=== PATIENT | female | born 1990 | race Hispanic/Latino ===

== ENCOUNTER 2018-06-12 01:40 | Emergency (ER) | payer BC ==
[2018-06-12 02:01] LABS: APPEARANCE,URINE Clear (CLEAR); BILIRUBIN,URINE Negative (NEGATIVE); COLOR,URINE Yellow (YELLOW); GLUCOSE, URINE (UA) Negative (NEGATIVE); KETONES,URINE Negative (NEGATIVE); LEUKOCYTE ESTERASE ,URINE Negative (NEGATIVE); NITRATE,URINE Negative (NEGATIVE); OCCULT BLOOD,URINE Negative (NEGATIVE); PH,URINE 7.5 (5.0-8.0); PROTEIN,URINE Negative (NEGATIVE)
[2018-06-12 02:04] LABS: HCG,QUAL RESULT NEGATIVE (NEGATIVE)
[2018-06-12] MEDS ORDERED: ONDANSETRON HCL 4 MG/2 ML VIAL ONE (02:13)
[2018-06-12] MEDS ORDERED: KETOROLAC TROMETHAMINE 30MG/ML ONE (02:14)
[2018-06-12 02:19] LABS: BASOPHILS % (AUTO) 0.2 % (0.0-5.0); EOSINOPHILS % (AUTO) 4.6 % (0.0-8.0); HEMATOCRIT 37.1 % (36-48); LYMPHOCYTES % (AUTO) 27.5 % (21.0-51.0); MEAN CORPUSCULAR HEMOGLOBIN 30.9 pg (27.0-33.0); MEAN CORPUSCULAR HGB CONC 33.4 g/dL (32.0-36.0); MEAN CORPUSCULAR VOLUME 92.6 fL (79-99); MONOCYTES % (AUTO) 11.7 % (3.0-13.0); PLATELET COUNT (AUTO) 287 K/uL (130-400); RED CELL DISTRIBUTION WIDTH 13.4 % (11.0-15.5); WHITE BLOOD COUNT (AUTO) 8.2 K/uL (4.8-10.8)
[2018-06-12 02:29] LABS: CREATININE 0.8 mg/dL (0.5-1.5); POTASSIUM 4.1 mmol/L (3.5-5.1)
[2018-06-12 02:35] LABS: ALBUMIN 3.4 g/dL (3.5-5.0); BILIRUBIN,TOTAL 0.3 mg/dL (0.2-1.0); TOTAL PROTEIN, SERUM 7.3 g/dL (6.0-8.3)
== END 2018-06-12 04:05 | disposition home or self-care (01) ==
LOC: EDH 01:40
DX: N83.202 Unspecified ovarian cyst, left side (principal); F32.9 Major depressive disorder, single episode, unspecified; F41.9 Anxiety disorder, unspecified; Z98.890 Other specified postprocedural states
CPT/HCPCS: 36415; 76856; 80053; 81003; 81025; 85025; 96372; 96374; 99285; J1885; J2405

== ENCOUNTER 2018-12-18 15:39 | Emergency (ER) | payer BC ==
[2018-12-18 16:40] LABS: BASOPHILS % (AUTO) 0.5 % (0.0-5.0); EOSINOPHILS % (AUTO) 3.4 % (0.0-8.0); HEMATOCRIT 35.5 % (36-48); LYMPHOCYTES % (AUTO) 22.3 % (21.0-51.0); MEAN CORPUSCULAR HEMOGLOBIN 31.6 pg (27.0-33.0); MEAN CORPUSCULAR HGB CONC 33.8 g/dL (32.0-36.0); MEAN CORPUSCULAR VOLUME 93.5 fL (79-99); MONOCYTES % (AUTO) 5.8 % (3.0-13.0); PLATELET COUNT (AUTO) 333 K/uL (130-400); RED BLOOD CELL COUNT(AUTO) 3.79 MIL/uL (4.00-5.50); RED CELL DISTRIBUTION WIDTH 13.4 % (11.0-15.5); WHITE BLOOD COUNT (AUTO) 6.5 K/uL (4.8-10.8)
[2018-12-18 16:46] LABS: HCG,QUAL RESULT NEGATIVE (NEGATIVE)
[2018-12-18 16:48] LABS: POTASSIUM 4.5 mmol/L (3.5-5.1)
[2018-12-18 16:51] LABS: AMPHET/METH SCREEN,URINE NEGATIVE (NEGATIVE); BARBITURATE SCREEN, URINE NEGATIVE (NEGATIVE); BENZODIAZEPINES SCREEN,URINE NEGATIVE (NEGATIVE); CANNABINOID SCREEN,URINE NEGATIVE (NEGATIVE); COCAINE SCREEN,URINE NEGATIVE (NEGATIVE); OPIATE SCREEN,URINE NEGATIVE (NEGATIVE); PHENCYCLIDINE SCREEN,URINE NEGATIVE (NEGATIVE)
[2018-12-18 17:08] LABS: ALBUMIN 3.7 g/dL (3.5-5.0); BILIRUBIN,DIRECT 0.1 mg/dL (0.0-0.3); BILIRUBIN,TOTAL 0.7 mg/dL (0.2-1.0); CREATININE 0.4 mg/dL (0.5-1.5); TOTAL PROTEIN, SERUM 6.9 g/dL (6.0-8.3)
[2018-12-18 18:06] LABS: B-TYPE NATRIURETIC PEPTIDE 45 pg/mL (0-100)
== END 2018-12-18 18:27 | disposition home or self-care (01) ==
LOC: EDH 15:39
DX: R00.2 Palpitations (principal); I10 Essential (primary) hypertension; F32.9 Major depressive disorder, single episode, unspecified; F41.9 Anxiety disorder, unspecified; Z98.890 Other specified postprocedural states
CPT/HCPCS: 36415; 71045; 80048; 80076; 80305; 81025; 82550; 83880; 84484; 85025; 93005

== ENCOUNTER 2018-12-27 03:16 | Emergency (ER) | payer BC ==
[2018-12-27] MEDS ORDERED: ACETAMINOPHEN EXTRA STRENGTH 500 MG TABLET ONE (04:10)
[2018-12-27] MEDS ORDERED: IBUPROFEN 200 MG TAB ONE (04:10)
== END 2018-12-27 04:17 | disposition home or self-care (01) ==
LOC: EDH 03:16
DX: S60.221A Contusion of right hand, initial encounter (principal); F41.9 Anxiety disorder, unspecified; I10 Essential (primary) hypertension; F32.9 Major depressive disorder, single episode, unspecified; W22.8XXA Striking against or struck by other objects, initial encounter; Y93.89 Activity, other specified; Y92.89 Other specified places as the place of occurrence of the external cause; Y99.8 Other external cause status
CPT/HCPCS: 73130

== ENCOUNTER 2019-02-07 00:42 | Emergency (ER) | payer BC ==
[2019-02-07] MEDS ORDERED: IPRATROPIUM/ALBUTEROL SULFATE 3 ML SOLUTION IH ONE (01:01)
[2019-02-07] MEDS ORDERED: METHYLPREDNISOLONE SOD SUCC 125MG/2ML VIAL ONE (01:01)
[2019-02-07] MEDS ORDERED: ALBUTEROL SULFATE 0.083% 2.5 MG/3 ML INH IH ONE (01:39)
[2019-02-07] MEDS ORDERED: DIPHENHYDRAMINE HCL 25 MG CAPSULE ONE (01:55)
== END 2019-02-07 02:00 | disposition home or self-care (01) ==
LOC: EDH 00:42
DX: J18.9 Pneumonia, unspecified organism (principal); I10 Essential (primary) hypertension; F41.9 Anxiety disorder, unspecified; F32.9 Major depressive disorder, single episode, unspecified
CPT/HCPCS: 71046; 81025; 87804 ×2; 94640 ×2; 96372; 99285; J2930; Q0163

== ENCOUNTER → 2019-06-15 | Outpatient (CLI) | payer BC ==
[~2019-06-15] VITALS: Ht 160 cm; Wt 66.0 kg
[~2019-06-15] MED LIST: SODIUM CHLORIDE 0.9% 1000ML 1,000 ML IV SCH; VERA120C2 PO
[2019-06-15 12:28] VITALS: BP 121/72
[2019-06-15 12:42] LABS: BASOPHILS % (AUTO) 0.3 % (0.0-5.0); EOSINOPHILS % (AUTO) 7.1 % (0.0-8.0); HEMATOCRIT 39.7 % (36-48); MEAN CORPUSCULAR HEMOGLOBIN 30.9 pg (27.0-33.0); MEAN CORPUSCULAR VOLUME 90.7 fL (79-99); NEUTROPHILS % (AUTO) 57.6 % (40.0-77.0); PLATELET COUNT (AUTO) 296 K/uL (130-400); RED BLOOD CELL COUNT(AUTO) 4.37 MIL/uL (4.00-5.50); RED CELL DISTRIBUTION WIDTH 14.2 % (11.0-15.5); WHITE BLOOD COUNT (AUTO) 7.1 K/uL (4.8-10.8)
[2019-06-15 12:50] LABS: CREATININE 0.5 mg/dL (0.5-1.5); POTASSIUM 3.8 mmol/L (3.5-5.1)
[2019-06-15 12:52] LABS: INR 0.95 (0.85-1.15); PARTIAL THROMBOPLASTIN TIME 26.4 SEC (26.3-35.5)
== END ==
LOC: DAH 10:00 → EDSTATUS 12:00
PROVIDERS: ATTEND Internal Medicine Cardiovascular Disease
DX: Z01.818 Encounter for other preprocedural examination (principal); I47.1 Supraventricular tachycardia; I10 Essential (primary) hypertension; Z98.890 Other specified postprocedural states; Z79.01 Long term (current) use of anticoagulants; Z79.899 Other long term (current) drug therapy
CPT/HCPCS: 36415; 80048; 84703; 85025; 85610; 85730

== ENCOUNTER 2019-07-23 05:55 | Observation (INO) | payer BC ==
[2019-07-21 11:22] LABS: BASOPHILS % (AUTO) 0.5 % (0.0-5.0); EOSINOPHILS % (AUTO) 1.9 % (0.0-8.0); HEMATOCRIT 38.7 % (36-48); LYMPHOCYTES % (AUTO) 20.7 % (21.0-51.0); MEAN CORPUSCULAR HEMOGLOBIN 30.8 pg (27.0-33.0); MEAN CORPUSCULAR VOLUME 90.5 fL (79-99); MONOCYTES % (AUTO) 6.6 % (3.0-13.0); NEUTROPHILS % (AUTO) 70.3 % (40.0-77.0); PLATELET COUNT (AUTO) 299 K/uL (130-400); RED BLOOD CELL COUNT(AUTO) 4.27 MIL/uL (4.00-5.50); RED CELL DISTRIBUTION WIDTH 14.3 % (11.0-15.5); WHITE BLOOD COUNT (AUTO) 9.2 K/uL (4.8-10.8)
[2019-07-21 11:31] LABS: CREATININE 0.6 mg/dL (0.5-1.5); POTASSIUM 3.9 mmol/L (3.5-5.1)
[2019-07-21 11:34] VITALS: BP 121/78
[2019-07-21 11:49] LABS: INR 0.94 (0.85-1.15); PARTIAL THROMBOPLASTIN TIME 25.9 SEC (26.3-35.5); PROTHROMBIN TIME 9.9 SEC (9.6-11.6)
--- NOTE | 2019-07-22 13:44 | NUR ---
NOTE H&P STATES PT IS ON VERAPAMIL, PT IS ACTUALLY TAKING METOPROLOL. CALLED PT FOR CLARIFICATION. PER PT, SHE STOPPED VERAPAMIL DUE TO LIGHTHEADEDNESS AND CONSTIPATION, STATED DR. WELCH HAD TOLD HER THAT IF MED CAUSES PROBLEMS TO LET HIM KNOW, SHE WENT TO ER FOR PALPITATIONS, ER MD GAVE HER METOPROLOL AND ADVISED TO NOTIFY DR. WELCH OF NEW RX. PT CALLED CLINIC TO INFORM OF NEW RX, SPOKE WITH NURSE AND THE NURSE HAD INFORMED DR. WELCH, INSTRUCTED HER TO HOLD METOPROLOL 3 DAYS PRIOR TO PROCEDURE. CLARIFIED WITH YASMINE GARCIA, DR. WELCH'S PUBLIC RELATIONS SUPERVISOR AND TOLD HER OF PT'S STORY. PER YASMINE., OKAY TO PROCEED, HOLD METOPROLOL 3 DAYS PRIOR TO PROCEDURE.
[~2019-07-23] VITALS: Ht 157.5 cm; Wt 64.6 kg
[2019-07-23] VITALS (9 sets, daily range): BP systolic 94–129; BP diastolic 57–87
[~2019-07-23 05:55] MED LIST changes: +METO25TA6 PO; -SODIUM CHLORIDE 0.9% 1000ML 1,000 ML IV SCH; -VERA120C2 PO
[2019-07-23] MEDS ORDERED: SODIUM CHLORIDE 0.9% 1000ML 1,000 ML IV ONE (07:00)
--- NOTE | 2019-07-23 08:05 | NUR ---
PROCEDURE PT TAKING TO PROCEDURE VIA WINE CONSULTANT STAFF. AT BEDSIDE.
[2019-07-23] MEDS ORDERED: HEPARIN SODIUM 1000UNIT/ML 10ML VIAL ONE (08:18)
[2019-07-23] MEDS ORDERED: MIDAZOLAM HCL 1 MG/ML 2ML VIAL ONE ×6 (08:18→12:54)
[2019-07-23] MEDS ORDERED: LIDOCAINE HCL 2% 20ML ONE (08:18)
[2019-07-23] MEDS ORDERED: MEPERIDINE-PF 25 MG/ML SYG ONE ×5 (08:18→12:54)
[2019-07-23] MEDS ORDERED: ISOPROTERENOL HCL 0.2 MG/ML AMP/VIAL/BAG ONE (08:51)
[2019-07-23] MEDS ORDERED: PROPRANOLOL HCL 1 MG/ML VIAL IVP ONE (13:11)
[2019-07-23] MEDS ORDERED: ACETAMINOPHEN-CODEINE 300/30MG TAB PO PRN (14:15)
[2019-07-23] MEDS ORDERED: METOPROLOL TARTRATE 25 MG TAB PO SCH (15:40)
[2019-07-23] MEDS: ACETAMINOPHEN-CODEINE 300/30MG TAB PO PRN ×2 (16:43→20:28)
[2019-07-23] MEDS: METOPROLOL TARTRATE 25 MG TAB PO SCH (20:19)
[2019-07-24] MEDS: ACETAMINOPHEN-CODEINE 300/30MG TAB PO PRN ×2 (01:52→09:09)
[2019-07-24 03:21] VITALS: BP 106/71
[2019-07-24 07:52] VITALS: BP 112/56
[2019-07-24] MEDS: METOPROLOL TARTRATE 25 MG TAB PO SCH (09:02)
[2019-07-24 11:41] VITALS: BP 104/66
[2019-07-24] MEDS ORDERED: METO-408 PO (13:39)
[2019-07-24] MEDS ORDERED: ACET1TAB12 PO (13:39)
[2019-07-24 15:30] VITALS: BP 105/71
== END 2019-07-24 16:00 | disposition home or self-care (01) ==
LOC: DAH 05:55 → DAHIP 05:56 → 2AH 14:31
PROVIDERS: ADMIT Internal Medicine Cardiovascular Disease; ATTEND Internal Medicine Cardiovascular Disease
DX: I47.1 Supraventricular tachycardia (principal); R55 Syncope and collapse; I10 Essential (primary) hypertension; K21.9 Gastro-esophageal reflux disease without esophagitis; R00.2 Palpitations; I49.8 Other specified cardiac arrhythmias; Z79.899 Other long term (current) drug therapy
CPT/HCPCS: 36415; 80048; 84703; 85025; 85610; 85730; 93005; 93613; 93621; 93623; 93653; 96360; 99156; 99157; A4606; C1730; C1894; G0378; J1644; J1800; J2175; J2250; J3490; J7030

== ENCOUNTER 2021-02-08 17:54 | Emergency (ER) | payer OTHER ==
[~2021-02-08] VITALS: Ht 160 cm; Wt 71.7 kg
[~2021-02-08 17:54] MED LIST changes: +ACET1TAB12 PO; +METO-408 PO; -METO25TA6 PO
[2021-02-08 18:05] VITALS: BP 122/73
[2021-02-08] MEDS ORDERED: LORAZEPAM 2 MG/ML 1 ML VIAL IVP ONE (18:15)
[2021-02-08 18:22] LABS: BASOPHILS % (AUTO) 0.2 % (0.0-5.0); HEMATOCRIT 42.7 % (36-48); LYMPHOCYTES % (AUTO) 5.9 % (21.0-51.0); MEAN CORPUSCULAR HEMOGLOBIN 30.2 pg (27.0-33.0); MEAN CORPUSCULAR HGB CONC 32.8 g/dL (32.0-36.0); MEAN CORPUSCULAR VOLUME 92.2 fL (79-99); MONOCYTES % (AUTO) 4.8 % (3.0-13.0); NEUTROPHILS % (AUTO) 86.8 % (40.0-77.0); PLATELET COUNT (AUTO) 369 K/uL (130-400); RED BLOOD CELL COUNT(AUTO) 4.63 MIL/uL (4.00-5.50); RED CELL DISTRIBUTION WIDTH 12.8 % (11.0-15.5); WHITE BLOOD COUNT (AUTO) 13.9 K/uL (4.8-10.8)
[2021-02-08 18:35] LABS: INR 0.94 (0.85-1.15); PROTHROMBIN TIME 10.3 SEC (9.6-11.6)
[2021-02-08 18:41] LABS: HCG,QUAL RESULT NEGATIVE (NEGATIVE)
[2021-02-08 18:46] LABS: B-TYPE NATRIURETIC PEPTIDE 16 pg/mL (0-100)
[2021-02-08 18:46] LABS: AMPHET/METH SCREEN,URINE NEGATIVE (NEGATIVE); BARBITURATE SCREEN, URINE NEGATIVE (NEGATIVE); BENZODIAZEPINES SCREEN,URINE NEGATIVE (NEGATIVE); CANNABINOID SCREEN,URINE NEGATIVE (NEGATIVE); COCAINE SCREEN,URINE NEGATIVE (NEGATIVE); OPIATE SCREEN,URINE NEGATIVE (NEGATIVE); PHENCYCLIDINE SCREEN,URINE NEGATIVE (NEGATIVE)
[2021-02-08 18:48] LABS: CARBON DIOXIDE 25 mmol/L (21-32); CHLORIDE 104 mmol/L (101-111); CREATININE 0.6 mg/dL (0.5-1.5); GLOMERULAR FILTR. RATE CALC 127 mL/min (>60); GLUCOSE,RANDOM 101 mg/dL (70-105); POTASSIUM 3.8 mmol/L (3.5-5.1); SODIUM SERUM 139 mmol/L (136-145); UREA NITROGEN, BLOOD 16 mg/dL (7-18)
[2021-02-08 19:00] LABS: ALANINE AMINOTRANSFERASE 48 U/L (12-78); ALBUMIN 4.1 g/dL (3.5-5.0); ASPARTATE AMINOTRANSFERASE 25 U/L (10-37); BILIRUBIN,TOTAL 0.6 mg/dL (0.2-1.0); CREATINE KINASE, TOTAL 55 U/L (21-232); MYOGLOBIN 19 ng/mL (10-92); TOTAL PROTEIN, SERUM 8.4 g/dL (6.0-8.3); TROPONIN I < 0.04 ng/mL (0.00-0.06)
[2021-02-08 20:08] VITALS: BP 131/79
== END 2021-02-08 20:34 | disposition home or self-care (01) ==
LOC: EDH 18:58
DX: R07.89 Other chest pain (principal); F41.9 Anxiety disorder, unspecified; R00.0 Tachycardia, unspecified; R00.2 Palpitations; Z79.899 Other long term (current) drug therapy
CPT/HCPCS: 36415; 71045; 80053; 80305; 81025; 82550; 83874; 83880; 84484 ×2; 85025; 85610; 93005; 96374; 99285; J2060

== ENCOUNTER 2023-12-07 22:31 | Emergency (ER) | payer OTHER | END 2023-12-08 02:41 | disposition left against medical advice (07) | LOC: EDH 22:31 | DX: M25.572 Pain in left ankle and joints of left foot (principal); Z53.21 Procedure and treatment not carried out due to patient leaving prior to being seen by health care provider ==